=== PATIENT | female | born 1965 | race Caucasian/White ===

== ENCOUNTER 2016-09-11 09:47 | Emergency (ER) | payer OTHER ==
--- OUTSIDE RECORDS SUMMARY | 2016-09-11 10:32 | XMS REPORT | Continuity of Care Document ---
:1965 Author Organization [facility] ([facility]) Address [address] [place] [id number] Phone [phone] Care Team Providers Name Role Phone [phone], Need To Check Primary Care Provider Unavailable Source Comments This disclosure is being made pursuant to the Care Everywhere program, applicable federal and state laws, and may not contain all informaitonavailable regarding this patient.[facility] ([facility]) Active Allergies and Adverse Reactions No Known Allergies Current Medications Prescription Sig. Disp. Refills Start End Date Status Date acetaminophen 650 mg Tab Take 1 Tab by mouth 60 Tab 0 Active every 4 hours as 1 needed for Pain and Fever. Indications: Pain docusate 100 mg capsule Take 1 Cap by mouth 40 Cap 1 Active daily. Indications: 1 Constipation hydrochlorothiazide 25 Take 1 Tab by mouth 100 Tab 2 Active mg tablet daily. Indications: 1 Edema, Hypertension levetiracetam 500 mg Take 1 Tab by mouth 14 Tab 0 Active tablet every 12 hours. 1 Indications: prevent seizures lisinopril 40 mg tablet Take 1 Tab by mouth 100 Tab 1 Active daily. Indications: 1 Hypertension omeprazole 20 mg Take 1 Cap by mouth 30 Cap 0 Active extended release capsule daily. Indications: 1 Prevention of Stress Ulcer oxyCODONE 5 mg immediate Take 1-2 Tabs by 40 Tab 0 Active release tablet mouth every 4 hours 1 as needed for Pain. Indications: Pain sennosides 8.6 mg tablet Take 1 Tab by mouth 2 60 Tab 2 Active times daily. 1 Indications: Constipation metoclopramide 10 mg Take 1 Tab by mouth 30 Tab 0 Active tablet every 6 hours as 1 needed. Indications: Gastroesophageal Reflux ondansetron 4 mg tablet Take 1 Tab by mouth 30 Tab 0 Active every 8 hours as 1 needed. Indications: prevention of vomiting Active Problems Not on file Social History Tobacco Use Types Packs/Day Years Used Date Never Smoker Last Filed Vital Signs Vital Sign Reading Time Taken Blood Pressure 134/72 01/01/2011 12:00 PM CDT Pulse 58 01/01/2011 12:00 PM CDT Temperature 36.1 C (97 F) 01/01/2011 12:00 PM CDT Respiratory Rate 20 01/01/2011 12:00 PM CDT Height 1.626 m (5' 4") 12/31/2010 1:14 PM CDT Weight 56.7 kg (125 lb) 12/31/2010 1:14 PM CDT Body Mass Index 21.45 12/31/2010 1:14 PM CDT Oxygen Saturation 99% 01/01/2011 12:00 PM CDT Plan of Care Health Maintenance Due Date Last Done Comments Hepatitis B Vaccine (1 of 3 - Primary Series) 1965 Tdap Vaccine 1978 Lipid Disorder Screening 1985 MMR Vaccine 1985 Td Vaccine 1985 Cervical Cancer Screening 1997 Mammogram 2007 Influenza Vaccine: Seasonal (#1) 12/24/2015 Results from Last 3 Months Not on file
[2016-09-11 10:33] LABS: Urine Bilirubin Negative (NEGATIVE); Urine Blood 25 /ul (NEGATIVE); Urine Ketone Negative (NEGATIVE); Urine Nitrite Negative (NEGATIVE); Urine Protein Negative (NEGATIVE); Urine Urobilinogen Normal (NORMAL)
[2016-09-11] MEDS ORDERED: NORMAL SALINE 1,000 ML IV ONE (10:34)
[2016-09-11] MEDS ORDERED: FAMOTIDINE 10 MG/ML VIAL IV ONE ×2 (10:34→10:47)
[2016-09-11] MEDS ORDERED: ONDANSETRON HCL/PF 2 MG/ML VIAL IV ONE (10:34)
[2016-09-11 10:39] LABS: Hematocrit 42.9 % (37.0-47.0); Hemoglobin 14.5 gm/dL (12.5-16.0); Mean Cell Volume 94.3 fl (78-100); Mean Corpuscular Hemoglobin 31.9 pg (27-31); Mean Corpuscular Hgb Conc 33.8 g/dl (32-36); Mean Platelet Volume 11.9 fl (6.0-9.5); Neutrophil # 9.5 K/mm3 (1.3-6.0); Neutrophil % 89.4 % (42-75.0); Platelet Count 167 K/mm3 (150-450); Red Blood Count 4.55 M/mm3 (4.2-5.4); Red Cell Distribution Width 11.9 % (11.5-14.0); White Blood Count 10.6 K/mm3 (4.0-10.5)
[2016-09-11 10:40] LABS: Urine Appearance Clear; Urine Bacteria None Seen; Urine Color Yellow; Urine WBC None Seen /hpf (0-5)
[2016-09-11] MEDS ORDERED: ONDANSETRON HCL/PF 2 MG/ML VIAL ONE (10:48)
--- NOTE | 2016-09-11 10:55 | ERNOTE ---
Abdominal HPI - Narrative Date of Service: 09/11/16 - General Chief Complaint: Abdominal Pain Time Seen by Provider: 09/11/16 10:27 Source: patient Exam Limitations: no limitations - Immun/Allergies/Home Medications Immunizatons: IMMUNIZATION HX Immunizations Up to Date No History of Influenza Vaccine No Hx Pneumococcal Vaccination No Allergies/Adverse Reactions: Allergies No Known Allergies Allergy (Verified 09/11/16 10:17) Home Medications: HOME MEDICATIONS Ondansetron [Zofran Odt] 4 mg PO Q6H PRN #20 tab 09/11/16 [Last Taken Unknown] Tamsulosin HCl [Flomax] 0.4 mg PO HS #5 capsule 09/11/16 [Last Taken Unknown] oxyCODONE HCL/ACETAMINOPHEN [Percocet 5-325 mg Tablet] 1 each PO Q6H #20 tablet 09/11/16 [Last Taken Unknown] - History of Present Illness Narrative: Patient comes due to vomiting and abdominal pain. The pain goes on and off and is generalized. Patient problems worsened in the last 24hrs. Patient denies any diarrhea. Patient with no Hx of Tx reported. Patient LMP is at the moment. Timing: intermittent Quality: moderate, aching, cramping Activities at Onset: none Modifying Factors - (Improves): Present: other - nothing Modifying Factors - (Worsens): Present: movement Associated Symptoms: Present: back pain, nausea, vomiting, loss of appetite, swelling/mass in abdomen. Absent: headache, chest pain, neck pain, diaphoresis , diarrhea-gross blood, fatigue, fever/chills, heartburn, shortness of breath, syncope, weakness Prior Abdominal Problems: Absent: recent trauma Prior Treatment: Absent: recently seen Review of Systems - Review of Systems Constitutional: Present: chills, malaise. Absent: fever, diaphoresis, fatigue, weight loss, fussy EYE: Present: no symptoms reported ENT: Present: no symptoms reported Respiratory: Present: no symptoms reported Cardiology: Present: no symptoms reported Gastrointestinal/Abdominal: Present: nausea, vomiting, abdominal pain - Generalized. Absent: diarrhea, constipation Genitourinary: Present: no symptoms reported Musculoskeletal: Present: no symptoms reported Skin: Present: no symptoms reported Neurological: Present: no symptoms reported Endocrine: Present: no symptoms reported Hematologic/Lymphatic: Present: no symptoms reported Psych: Present: no symptoms reported All Other Systems: All systems neg except as marked - Patient's Past Medical History Patient History - Medical: No pertinent hx Patient History - Cardiac/Respiratory: Hypertension Patient History - Cancer: No Hx of Cancer Patient History - Surgical Procedures: No surgical history Patient History - Other: None - Family History Mother Family History - Medical: Diabetes Type 1 Family History - Cardiac/Respiratory: No pertinent hx - Social History Living Situations: home Abuse History: No History of abuse Psych History: No pertinent hx Alcohol Use: none Drug Use: none - Immunizations Immunizations Up to Date: No Hx Pneumococcal Vaccination: No History of Influenza Vaccine: No Physical Exam - Physical Exam General Appearance: Present: wd/wn, alert, no apparent distress Eye Exam: Normal inspection: bilateral, PERRL: bilateral, EOMI: bilateral Ears, Nose, Throat: Present: normal ENT inspection, normal pharynx, dry mucous membranes Neck: Present: normal inspection, nontender Respiratory: Present: no respiratory distress, normal breath sounds, no accessory muscle use, chest nontender, lungs clear Cardiovascular/Chest: Present: regular rate, rhythm, no murmur, normal peripheral pulses. Absent: JVD Gastrointestinal/Abdominal: Present: tenderness, distended - mild, guarding. Absent: rebound, mass Back Exam: Present: normal inspection, normal range of motion, no CVA tenderness , no vertebral tenderness Extremity Exam: Present: normal inspection, non-tender, normal range of motion, no edema Neurological Exam: Present: alert, oriented, normal mood/affect, no motor/ sensory deficits Skin Exam: Present: normal color, warm/dry Lymphatic Exam: Present: no adenopathy ED Progress - Date and Time Seen: Date and Time: 09/11/16 12:11 Patient found with micro hematuria. Patient CT show no intra abdominal pathology. Patient with L side decrease excretion. Patient with the possibility of a small obstruction stone. Patient at this point is pain free. Patient will be given Flomax and will need follow up by Urologist. At this point no urologist conservator artifacts at [facility]. Patient can be arrange evaluation out patient. Patient has been explained that is condition persist or get worse she will need Urologist Evaluation. Patient will be seen at PCP office on Thursday at 11:00am. 09/11/16 12:19 Patient at the moment has a non surgical abdomen. Patient will be given pain control and constipation prevention medication. - Results and Orders Patient's Lab Results:: I have reviewed the patient's lab results. Results and Orders: CBC: elevated WBC CMP: Mild Elevated Creat. : Negative CT: Gas and fecal material were noticed. Pending Radiologist Report. UA: Mild Hematuria noticed - Vital Signs Patient's Vital Signs:: I have reviewed the patient's vital signs. Vital Signs: Vital Signs 09/11/16 10:11 Temperature 36.5 C Pulse Rate 77 Respiratory 16 Rate Blood Pressure 161/104 O2 Sat by Pulse 98 Oximetry - CT/Ultrasound CT/Ultrasound Narrative: CT: Patient on no intra abdominal pathology. Patient with changes on the L side renal system that could be due to a small stone. - Progress/Reassessment Chief Complaint: Abdominal Pain Progress:: Improved - Transfer of Care Expected Disposition: Discharge Departure - Departure Clinical Impression: Flank pain, Kidney calculus Constipation Qualifiers: Constipation type: unspecified constipation type Qualified Code(s): K59.00 - Constipation, unspecified Abdominal pain Qualifiers: Abdominal location: unspecified location Qualified Code(s): R10.9 - Unspecified abdominal pain Disposition: Home self-care Condition: Stable Instructions: Abdominal Pain, Adult, [id number], Kidney Stones, [id number] , Constipation, Adult, [id number] Additional Instructions: Your Primary Care Provider will see you next Thursday at 11:00 am at the office. If your condition get worse, fail to improve or you develop fever you will need to return to an Emergency Room with Urology Service. Referrals: Bipin Pedersen MD [Primary Care Provider] - Prescriptions: Ondansetron [Zofran Odt] 4 mg PO Q6H PRN #20 tab PRN Reason: Nausea Tamsulosin HCl [Flomax] 0.4 mg PO HS #5 capsule oxyCODONE HCL/ACETAMINOPHEN [Percocet 5-325 mg Tablet] 1 each PO Q6H #20 tablet
[2016-09-11 10:57] LABS: Albumin * 4.4 gm/dl (3.4-5.0); Anion Gap 11.4 mmol/L (6.8-13.8); BUN/Creatinine Ratio 16.9 (9.0-21.6); Bilirubin, Total 0.4 mg/dL (0.0-1.1); Ca. Corrected For Albumin 9.1 mg/dL (8.4-10.2); Calcium * 9.7 mg/dL (7.9-10.9); Carbon Dioxide 29.9 mmol/L (24-32.6); Potassium 4.3 mmol/L (3.4-4.6); Total Protein 7.9 gm/dL (6.2-8.2)
[2016-09-11] MEDS ORDERED: HYDROmorphone HCL 1 MG/ML DISP.SYRIN IV ONE (11:48)
[2016-09-11] MEDS ORDERED: HYDROmorphone HCL 1 MG/ML DISP.SYRIN ONE (11:50)
[2016-09-11] MEDS ORDERED: TAMSULOSIN HCL 0.4 MG CAP.SR.24H PO ONE ×2 (12:26→12:33)
[2016-09-11] MEDS ORDERED: SOD CHLORIDE/NAHCO3/KCL/PEG'S 4,000 ML BTL PO PRN (12:27)
[2016-09-11 12:38] VITALS: BP 184/101
== END 2016-09-11 12:45 | disposition home or self-care (01) ==
LOC: ER 09:47
DX: K59.00 Constipation, unspecified (principal); R10.9 Unspecified abdominal pain; N20.0 Calculus of kidney

== ENCOUNTER 2016-11-24 21:16 | Emergency (ER) | payer OTHER ==
[2016-11-24] MEDS ORDERED: NORMAL SALINE 1,000 ML IV ONE (21:27)
--- NOTE | 2016-11-24 21:33 | ERNOTE ---
Neuro HPI ER Record Presenting Symptoms: confusion Time Seen by Provider: 11/24/16 21:17 Source: patient Exam Limitations: no limitations Immunizations: IMMUNIZATION HX Immunizations Up to Date No History of Influenza Vaccine No Hx Pneumococcal Vaccination No Allergies/Adverse Reactions: Allergies Allergy/AdvReac Type Severity Reaction Status Date / Time No Known Allergies Allergy Verified 11/24/16 21:25 Home Medications: HOME MEDICATIONS Cetirizine HCl [All Day Allergy] 10 mg PO DAILY 11/24/16 [Last Taken Unknown] Hydrochlorothiazide [Hydrodiuril] 25 mg PO DAILY 11/24/16 [Last Taken Unknown] Montelukast Sodium [Singulair] 10 mg PO DAILY 11/24/16 [Last Taken Unknown] Sulfamethoxazole/Trimethoprim [Bactrim Ds] 1 tab PO BID #10 tab 11/24/16 [Last Taken Unknown] - History of Present Illness Narrative: Pt states that she got food poisoning on Thursday with N/V/D[place] Today she was home and began to get more confused and thought she was in [place]. Brought in by EMS A&O X 4. EMS report temp 103f temoral. Onset: gradual onset Severity: moderate - Character of Deficits New weakness: Present: general (diffuse) Baseline Cognition: Present: alert, oriented x 4 Baseline Gait: Present: walks w/o assistance Associated Symptoms: Reports: disoriented, confused Review of Systems - Review of Systems Constitutional: Absent: recent illness EYE: Absent: blurred vision, double vision ENT: Present: no symptoms reported Respiratory: Absent: shortness of breath Cardiology: Absent: chest pain, palpitations Gastrointestinal/Abdominal: Present: nausea, vomiting, diarrhea Genitourinary: Absent: frequency, pain Musculoskeletal: Present: no symptoms reported Skin: Present: no symptoms reported Neurological: Present: no symptoms reported Endocrine: Present: no symptoms reported Hematologic/Lymphatic: Present: no symptoms reported Psych: Present: no symptoms reported - Patient's Past Medical History Patient History - Medical: No pertinent hx Patient History - Cardiac/Respiratory: Hypertension Patient History - Cancer: No Hx of Cancer Patient History - Surgical Procedures: No surgical history Patient History - Other: None - Family History Mother Family History - Medical: Diabetes Type 1 Family History - Cardiac/Respiratory: No pertinent hx - Social History Living Situations: home Abuse History: No History of abuse Psych History: No pertinent hx Alcohol Use: none Drug Use: none - Immunizations Immunizations Up to Date: No Hx Pneumococcal Vaccination: No History of Influenza Vaccine: No Physical Exam - Physical Exam General Appearance: Present: wd/wn, alert, no apparent distress Eye Exam: Normal inspection: bilateral, PERRL: bilateral, EOMI: bilateral Ears, Nose, Throat: Present: normal ENT inspection, normal pharynx Neck: Present: normal inspection, nontender, supple Respiratory: Present: no respiratory distress, normal breath sounds, lungs clear Cardiovascular/Chest: Present: regular rate, rhythm, no murmur, normal peripheral pulses Gastrointestinal/Abdominal: Present: nondistended, soft Back Exam: Present: normal inspection, normal range of motion Extremity Exam: Present: normal inspection, non-tender, no edema Neurological Exam: Present: alert, oriented, normal mood/affect, no motor/ sensory deficits Skin Exam: Present: warm/dry, other - Sunburn Lymphatic Exam: Present: no adenopathy Yaz Coma Scale - Assess Eye Opening: Spontaneous Motor: Obeys Commands Verbal: Oriented - Total Coma Scale Total: 15 ED Progress - Results and Orders Patient's Lab Results:: I have reviewed the patient's lab results. Results and Orders: Laboratory Tests 11/24/16 11/24/16 11/24/16 21:40 21:40 22:20 WBC 7.0 Hgb 11.4 L Hct 32.6 L Plt Count 103 L Neutrophils % 84.9 H Sodium 139 Potassium 2.7 L Chloride 102 Carbon Dioxide 27.9 Anion Gap 11.8 BUN 14 Creatinine 1.15 Est GFR (Non-Af Amer) 53 L BUN/Creatinine Ratio 12.2 Random Glucose 126 H Calcium 8.3 Total Bilirubin 0.3 AST 22 ALT 23 Alkaline Phosphatase 64 Total Protein 6.5 Albumin 3.1 L Urine Color Yellow Urine Appearance Slightly cloudy Urine pH 6.5 Ur Specific Spade <=1.005 Urine Protein 15 H Urine Glucose (UA) Negative Urine Ketones Negative Urine Blood 25 H Urine Nitrate Negative Urine Bilirubin Negative Prot Sulfosalicylic Acd Negative Urine Urobilinogen Normal Ur Leukocyte Esterase 500 H Urine RBC 0-5 Urine WBC 5-10 H Ur Epithelial Cells 0-5 Urine Bacteria 3+ H Urine Culture Comments Culture to follow Laboratory Tests 11/24/16 23:30 Potassium 3.4 D - Vital Signs Patient's Vital Signs:: I have reviewed the patient's vital signs. - EKG EKG: NSR - with short IA interval. EKG read: Interp. by me Departure Clinical Impression: Hypokalemia UTI (urinary tract infection) Qualifiers: Urinary tract infection type: acute cystitis Hematuria presence: with hematuria Qualified Code(s): N30.01 - Acute cystitis with hematuria - Departure Disposition: Home self-care Condition: Fair Instructions: Hypokalemia, Urinary Tract Infection, Adult, [id number] Additional Instructions: eat extra foods high in potassium such as bananas for the next few days Prescriptions: Sulfamethoxazole/Trimethoprim [Bactrim Ds] 1 tab PO BID #10 tab
[2016-11-24 21:46] LABS: Hematocrit 32.6 % (37.0-47.0); Hemoglobin 11.4 gm/dL (12.5-16.0); Mean Cell Volume 91.8 fl (78-100); Mean Corpuscular Hemoglobin 32.1 pg (27-31); Mean Platelet Volume 12.6 fl (6.0-9.5); Neutrophil # 5.9 K/mm3 (1.3-6.0); Neutrophil % 84.9 % (42-75.0); Platelet Count 103 K/mm3 (150-450); Red Blood Count 3.55 M/mm3 (4.2-5.4); Red Cell Distribution Width 12.2 % (11.5-14.0)
[2016-11-24] MEDS ORDERED: KETOROLAC TROMETHAMINE 30 MG/ML VIAL IV ONE (21:51)
[2016-11-24] MEDS ORDERED: KETOROLAC TROMETHAMINE 30 MG/ML VIAL ONE (21:52)
[2016-11-24 22:08] LABS: Albumin * 3.1 gm/dl (3.4-5.0); Anion Gap 11.8 mmol/L (6.8-13.8); BUN/Creatinine Ratio 12.2 (9.0-21.6); Bilirubin, Total 0.3 mg/dL (0.0-1.1); Ca. Corrected For Albumin 8.7 mg/dL (8.4-10.2); Calcium * 8.3 mg/dL (7.9-10.9); Carbon Dioxide 27.9 mmol/L (24-32.6); Potassium 2.7 mmol/L (3.4-4.6); Total Protein 6.5 gm/dL (6.2-8.2)
[2016-11-24] MEDS ORDERED: POTASSIUM BICARBONATE/CIT AC 25 MEQ TABLET.EFF PO ONE (22:24)
[2016-11-24 22:26] LABS: Urine Bilirubin Negative (NEGATIVE); Urine Blood 25 /ul (NEGATIVE); Urine Ketone Negative (NEGATIVE); Urine Nitrite Negative (NEGATIVE); Urine Protein 15 mg/dL (NEGATIVE); Urine Specific Gravity <=1.005 SP.GR. (1.005-1.010); Urine Urobilinogen Normal (NORMAL); Urine pH 6.5 pH (5.0-7.0)
[2016-11-24] MEDS ORDERED: POTASSIUM BICARBONATE/CIT AC 25 MEQ TABLET.EFF ONE (22:26)
[2016-11-24 22:37] LABS: Urine Appearance Slightly Cloudy; Urine Bacteria 3+; Urine Color Yellow; Urine RBC 0-5 /hpf (0-5)
[2016-11-24] MEDS ORDERED: SULFAMETHOXAZOLE/TRIMETHOPRIM 1 TAB TABLET ONE (23:54)
[2016-11-24 23:56] VITALS: BP 110/63
[2016-11-25] MEDS ORDERED: SULFAMETHOXAZOLE/TRIMETHOPRIM 1 TAB TABLET PO ONE
== END 2016-11-25 00:09 | disposition home or self-care (01) ==
LOC: ER 21:16
DX: E87.6 Hypokalemia (principal); N30.01 Acute cystitis with hematuria; I10 Essential (primary) hypertension

== ENCOUNTER 2017-04-30 11:57 | Day surgery (SDC) | payer OTHER ==
[~2017-04-30 11:57] MED LIST: RINGER'S SOLUTION,LACTATED 1,000 ML IV PRN
[2017-04-30] MEDS ORDERED: RINGER'S SOLUTION,LACTATED 1,000 ML IV ONE (12:46)
[2017-04-30] MEDS ORDERED: LIDOCAINE HCL/EPINEPHRINE 30 ML VIAL IJ ONE (13:15)
--- NOTE | 2017-04-30 13:30 | OR ---
Operative Report - Dictated Report Narrative: Operative report: 04/30/2017 Preoperative diagnosis: Low-grade squamous intraepithelial lesion, inadequate colposcopy with inadequate ECC Postoperative diagnosis: Same Procedure: LEEP Surgeon: Jeny Styles D.O. Hardwood Sawyer: OR staff Anesthesia: Local and sedation IV fluids: 400 Milliliters Urine output: Not applicable Findings: stenotic cervix EBL: min Milliliters Drains: None Pathology: cervical LEEP Complications: None Condition: Stable The patient was taken to the operating room. Anesthesia was found to be adequate. The patient was prepped and draped in the normal sterile fashion in the dorsal lithotomy position. A sterile speculum was then inserted into the vagina. Local anesthetic was then injected in the cervix. The suction applicator was applied to the coated speculum. The loop electrode was then selected. The excisional procedure was then performed with the loop electrode. The portion of cervix was then placed in a specimen container and sent to pathology. The cervical base was then cauterized with the ball tip Bovie to ablate the edges and obtain good hemostasis. No bleeding was then noted from the cervix. The speculum was then removed. The patient tolerated the procedure well. Sponge, lap, and instrument counts were correct throughout the entire procedure. The patient was taken to the recovery room in stable condition.
[2017-04-30] MEDS ORDERED: oxyCODONE HCL/ACETAMINOPHEN 1 TAB TABLET PO PRN (14:01)
[2017-04-30] MEDS ORDERED: IBUPROFEN 800 MG TABLET PO PRN (14:02)
[2017-04-30 14:30] VITALS: BP 118/67
== END 2017-04-30 11:58 | disposition home or self-care (01) ==
LOC: AMB 11:57
PROVIDERS: ATTEND Obstetrics & Gynecology Gynecologic Oncology
PROC: 0UBC7ZX Excision of Cervix, Via Natural or Artificial Opening, Diagnostic (ICD-10-PCS; principal; 2017-04-30 13:00)
DX: N87.0 Mild cervical dysplasia (principal); R87.810 Cervical high risk human papillomavirus (HPV) DNA test positive; N88.2 Stricture and stenosis of cervix uteri; I10 Essential (primary) hypertension; Z68.23 Body mass index [BMI] 23.0-23.9, adult